=== PATIENT | male | born 1995 | race Caucasian/White ===

== ENCOUNTER 2017-09-01 15:18 | Emergency (ER) | payer SELFPAY ==
[~2017-09-01] VITALS: Ht 180.3 cm; Wt 135.2 kg
[~2017-09-01 15:18] MED LIST: HYDR-1231 PO
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
[2017-09-01 18:23] LABS: BILIRUBIN,URINE NEGATIVE (NEGATIVE); CLARITY,URINE SLIGHTLY CLOUDY; COLOR,URINE YELLOW; GLUCOSE, URINE (UA) NEGATIVE (NEGATIVE); KETONES,URINE NEGATIVE (NEGATIVE); LEUKOCYTE ESTERASE ,URINE 1+ (NEGATIVE); NITRITE,URINE NEGATIVE (NEGATIVE); PH,URINE 5 (5-9); PROTEIN,URINE NEGATIVE (NEGATIVE); UROBILINOGEN,URINE NORMAL (NORMAL)
[2017-09-01 18:40] LABS: SQUAMOUS EPITHELIAL CELL,UR RARE /HPF; WBC,URINE 0-2 /HPF
--- NOTE | 2017-09-01 18:40 | Diagnostic Imaging Report ---
EXAMINATION: CT lumbar spine from 09/01/2017. TECHNIQUE: Multiple contiguous axial images were obtained through the lumbar spine without the use of intravenous contrast. Sagittal and coronal reformations were then performed. INDICATION: Lifting weights yesterday. Back pain since then. FINDINGS: There is normal height and alignment of the vertebral bodies. Overall, examination is somewhat limited by patient body habitus. No fractures identified. A nonspecific hyperdensity immediately inferior to the L5 spinous process is seen and appears well calcified, most likely a chronic nonspecific soft tissue calcification. There are no soft tissue windows and evaluation of the soft tissues is very limited, again due to technique and patient body habitus, however there is a suspicion of a bulging disc at least at the L5-S1 level but poorly evaluated with the central canal not well seen. Possible bulging disc material at L4-L5 as well. Intra-abdominal structures are not well evaluated. IMPRESSION: 1. No fractures identified. 2. Possible bulging disc material at L4-L5 and L5-S1 but overall soft tissues are very poorly seen with limitations, as above. If there is continued pain or concern for nerve root encroachment or bulging disc material, MRI could better characterize as clinically warranted. Dictated by: Dictated on workstation # [id number]
[2017-09-01 18:41] LABS: AMPHETAMINE SCREEN, URINE NEGATIVE (NEGATIVE); BARBITURATE SCREEN URINE NEGATIVE (NEGATIVE); BENZODIAZEPINES SCREEN URINE NEGATIVE (NEGATIVE); CANNABINOID SCREEN, URINE NEGATIVE (NEGATIVE); COCAINE SCREEN URINE NEGATIVE (NEGATIVE); METHADONE STAT NEGATIVE (NEGATIVE); METHAMPHETAMINE SCREEN URINE S NEGATIVE (NEGATIVE); OPIATE SCREEN URINE NEGATIVE (NEGATIVE); OXYCODONE STAT NEGATIVE (NEGATIVE); PROPOXYPHENE STAT NEGATIVE (NEGATIVE); TRICYCLIC ANTIDEPRESSANTS SCRE NEGATIVE (NEGATIVE)
[2017-09-01] MEDS ORDERED: CYCL10TA9 PO (19:32)
[2017-09-01] MEDS ORDERED: NAPR-915 PO (19:32)
[2017-09-01 19:45] VITALS: BP 123/82
== END 2017-09-01 19:45 | disposition home or self-care (01) ==
LOC: EDUNIT# 15:18 → ER 15:20
DX: S39.012A Strain of muscle, fascia and tendon of lower back, initial encounter (principal); J45.909 Unspecified asthma, uncomplicated; E66.9 Obesity, unspecified; F17.210 Nicotine dependence, cigarettes, uncomplicated; Z96.651 Presence of right artificial knee joint; Z94.5 Skin transplant status; Z88.8 Allergy status to other drugs, medicaments and biological substances; Z68.41 Body mass index [BMI] 40.0-44.9, adult; X50.0XXA Overexertion from strenuous movement or load, initial encounter
CPT/HCPCS: 72131; 80306; 81000

== ENCOUNTER 2019-11-07 15:31 | Emergency (ER) | payer SELFPAY ==
[~2019-11-07 15:31] MED LIST changes: +CYCL10TA9 PO; +NAPR-915 PO
[2019-11-07] MEDS ORDERED: ORPHENADRINE 60 MG/2 ML (NORFLEX) AMP (ED ONLY) ONE (15:46)
[2019-11-07] MEDS ORDERED: KETOROLAC 60 MG/2 ML VIAL ONE (15:46)
== END 2019-11-07 16:11 | disposition home or self-care (01) ==
LOC: ER 15:31 → EDUNIT# 11-08 05:48
DX: S39.012A Strain of muscle, fascia and tendon of lower back, initial encounter (principal); X50.1XXA Overexertion from prolonged static or awkward postures, initial encounter
CPT/HCPCS: 96372

== ENCOUNTER → 2020-03-17 | Outpatient (CLI) | payer OTHER ==
--- NOTE | 2020-03-17 16:45 | Diagnostic Imaging Report ---
PROCEDURE: MRI right joint lower extremity without contrast. TECHNIQUE: Multiplanar, multisequence non contrast-enhanced MRI of the right lower extremity was accomplished. INDICATION: Complex tear of medial meniscus. History of prior meniscal surgery. FINDINGS: Alignment of the knee appears appropriate. There are no marrow signal changes present to suggest bone contusion or fracture. There is no suspicious marrow replacing lesion. There is patellar chondromalacia particularly along the lateral facet of the patella. There is underlying edema and early subchondral cyst formation demonstrated within the lateral aspect of the patella. The articular cartilage within the medial and lateral compartments appears preserved. The anterior and posterior cruciate ligaments appear intact and unremarkable. Patient reportedly has a history of medial meniscal repair. There is some slight blunting of the mid body of the meniscus that is likely postsurgical in nature. No recurrent meniscal tear is evident. Lateral meniscus demonstrates normal morphology with no evidence of a lateral meniscal tear. The quadriceps and patellar tendons appear intact. There is no significant knee joint effusion. There are no findings of an intra-articular loose body. There is a small nonruptured Pride's cyst. The medial collateral ligament and lateral collateral ligamentous complex appear unremarkable. The periarticular soft tissues demonstrate no fluid collections or soft tissue mass. There are appropriate vascular flow voids. IMPRESSION: 1. Lateral facet patellar chondromalacia with underlying patellar edema and early subchondral cyst formation. The articular cartilage within the medial and lateral compartments appear preserved. 2. Presumed postsurgical blunting of the medial meniscus without recurrent meniscal tear. No lateral meniscal tear evident. 3. The cruciates, collateral ligaments and extensor mechanism appear intact. 4. No significant knee joint effusion. There is a small Pride's cyst. Dictated by: Dictated on workstation # [id number]
== END ==
LOC: RAD 14:42
PROVIDERS: ATTEND Nurse Practitioner
DX: S83.231D Complex tear of medial meniscus, current injury, right knee, subsequent encounter (principal); X58.XXXD Exposure to other specified factors, subsequent encounter
CPT/HCPCS: 73721

== ENCOUNTER 2020-07-01 00:16 | Emergency (ER) | payer MEDICAID ==
[~2020-07-01] VITALS: Ht 180 cm; Wt 178.7 kg
[2020-07-01] MEDS ORDERED: SULF1TAB35 PO (01:13)
--- NOTE | 2020-07-01 01:13 | ED Integumentary General ---
General Chief Complaint: Skin/Wound Problems Stated Complaint: POSS SPIDER BITES ON ARMS Nursing Triage Note: Patient ambulatory to ER with c/o possible spider bites to the left AC space, right wrist area, and right buttock area. Patient states he was helping a friend clean out an attic and saw multiple spiders. He states this bites have been present x 3 days. He did have 1 episode of vomiting tonight. Source: patient Exam Limitations: no limitations History of Present Illness Date Seen by Provider: Jul 01, 2020 Time Seen by Provider: 00:59 Initial Comments Patient presents ER by private conveyance with chief complaint over the last 3 days has had 3 areas of redness swelling one on his right buttock one on his right forearm and one on his left forearm. He said he saw lots of spiders when he was crawling around in an attic doing some work. No fevers chills nausea vomiting or immunocompromise. His left forearm opened up and drained a little bit. Allergies and Home Medications Allergies Coded Allergies: gabapentin (Unverified Allergy, Unknown, 02/19/14) Home Medications Cyclobenzaprine HCl 10 Mg Tablet, 10 MG PO Q8H Prescribed by: RANJAN CARDOZA on 09/01/171931 Naproxen 500 Mg Tablet, 500 MG PO BID Prescribed by: RANJAN CARDOZA on 09/01/171931 Sulfamethoxazole/Trimethoprim 1 Each Tablet, 1 EACH PO BID Prescribed by: KRISSY VEGA on 07/01/20 0113 Patient Home Medication List Home Medication List Reviewed: Yes Review of Systems Review of Systems Constitutional: No chills, No fever EENTM: No ear discharge, No ear pain Respiratory: No cough, No short of breath Cardiovascular: No edema, No palpitations Gastrointestinal: No abdominal pain, No nausea All Other Systems Reviewed Negative Unless Noted: Yes Past Jcjyogx-Xxyijn-Tpajjv Hx Patient Social History Alcohol Use: Denies Use Number of Drinks Today: AA Alcohol Beverage of Choice: Beer Smoking Status: Current Everyday Smoker Type Used: Cigarettes 2nd Hand Smoke Exposure: No Recent Infectious Disease Expo: No Recent Hopitalizations: No Immunizations Up To Date Tetanus Booster (TDap): Unknown PED Vaccines UTD: Yes Seasonal Allergies Seasonal Allergies: Yes Past Medical History Surgeries: Yes (Skin grafts) Orthopedic Respiratory: Yes (CHILDHOOD) Asthma Cardiac: No Neurological: No Genitourinary: No Gastrointestinal: No Musculoskeletal: Yes Fractures Endocrine: No (OBESITY) HEENT: No Cancer: No Psychosocial: No Integumentary: No Blood Disorders: No Physical Exam Vital Signs Vital Signs - First Documented 07/01/20 00:56 Temp 36.1 Pulse 100 Resp 18 B/P (MAP) 150/111 (124) Pulse Ox 97 O2 Delivery Room Air Capillary Refill : Less Than 3 Seconds General Appearance: WD/WN, no apparent distress HEENT: PERRL/EOMI, pharynx normal Cardiovascular: normal peripheral pulses, regular rate, rhythm Respiratory: no respiratory distress, no accessory muscle use Neurologic/Psychiatric: alert, oriented x 3 Skin: other (Erythematous mild induration pointing without fluctuance and a small amount of purulence a 2 cm round red pustule on the right forearm. Soft erythematous 2 cm round welt on the left forearm and indurated 3 cm diameter round red pustule on the right buttock) Procedures/Interventions I&D #1: Site: Right buttock Blade Size: 25-gauge 1 inch needle Progress Deroofed the pustule and pressed out about 2 pinhead's worth of purulent material. I&D #2: Site: Right forearm Blade Size: 25-gauge 1 inch needle Progress Deroofed the pustule and pushed out about 1 pinhead's worth of purulent material Progress/Results/Core Measures Results/Orders Vital Signs/I&O 07/01/20 00:56 Temp 36.1 Pulse 100 Resp 18 B/P (MAP) 150/111 (124) Pulse Ox 97 O2 Delivery Room Air Blood Pressure Mean: 124 Departure Impression Primary Impression: Abscess Additional Impression: Spider bite Qualified Codes: T63.301A - Toxic effect of unspecified spider venom, accidental (unintentional), initial encounter Disposition: HOME, SELF-CARE Condition: Stable Departure-Patient Inst. Decision time for Depature: 01:11 Referrals: NO,LOCAL PHYSICIAN (PCP/Family) Primary Care Physician Patient Instructions: Skin Abscess Add. Discharge Instructions: Because the initial injury to your skin there is now bacterial infection in these 3 spots. We are going to put you on Bactrim 1 tablet twice a day with sarah beth d for the next week. If your symptoms completely go away just do 2 more days of antibiotics and you may quit early. Keep the skin clean with regular soap and water. You may cover them with a Band-Aid or leave them open to air which ever you prefer. Return to the ER promptly if you are having fevers nausea vomiting or other worrisome symptoms such as worsening redness traveling up your arm. All discharge instructions reviewed with patient and/or family. Voiced understanding. Scripts Sulfamethoxazole/Trimethoprim (Bactrim Ds Tablet) 1 Each Tablet 1 EACH PO BID for 7 Days, #14 TAB 0 Refills Prov: KRISSY VEGA 07/01/20 KRISSY VEGA Jul 01, 2020 01:13
[2020-07-01 01:44] VITALS: BP 150/111
== END 2020-07-01 01:45 | disposition home or self-care (01) ==
LOC: EDUNIT# 00:16 → ER 00:20
DX: L02.413 Cutaneous abscess of right upper limb (principal); L02.414 Cutaneous abscess of left upper limb; T63.301A Toxic effect of unspecified spider venom, accidental (unintentional), initial encounter; E66.9 Obesity, unspecified; I10 Essential (primary) hypertension; F17.210 Nicotine dependence, cigarettes, uncomplicated; Z88.8 Allergy status to other drugs, medicaments and biological substances
CPT/HCPCS: 99282